=== PATIENT | female | born 1955 | race Caucasian/White ===

== ENCOUNTER 2019-06-09 09:32 | Outpatient (RCR) | payer MEDICAID, SELFPAY | END 2019-06-21 00:01 | LOC: WOUND 09:32 | PROVIDERS: Family Provider Nurse Practitioner Family; Visit Provider Nurse Practitioner Family | DX: I96 Gangrene, not elsewhere classified (principal); L97.819 Non-pressure chronic ulcer of other part of right lower leg with unspecified severity; M79.604 Pain in right leg; M79.605 Pain in left leg | CPT/HCPCS: 93923; 93970; G0463 ×3 ==

== ENCOUNTER 2019-07-13 09:34 | Outpatient (RCR) | payer MEDICAID, SELFPAY | END 2019-07-22 23:59 | disposition home or self-care (01) | LOC: WOUND 09:34 | PROVIDERS: Family Provider Nurse Practitioner Family; PCP Nurse Practitioner Family; Visit Provider Nurse Practitioner Family | DX: I87.2 Venous insufficiency (chronic) (peripheral) (principal); L97.812 Non-pressure chronic ulcer of other part of right lower leg with fat layer exposed | CPT/HCPCS: 11042; 29581; 99213; A6545 ==

== ENCOUNTER 2019-08-10 09:04 | Outpatient (RCR) | payer MEDICAID, SELFPAY | END 2019-08-20 23:59 | disposition home or self-care (01) | LOC: WOUND 09:04 | PROVIDERS: Family Provider Nurse Practitioner Family; PCP Nurse Practitioner Family; Visit Provider Nurse Practitioner Family | DX: I87.2 Venous insufficiency (chronic) (peripheral) (principal); L97.812 Non-pressure chronic ulcer of other part of right lower leg with fat layer exposed | CPT/HCPCS: 11042 ==

== ENCOUNTER 2019-08-25 07:55 | Outpatient (CLI) | payer MEDICAID, SELFPAY ==
--- NOTE | 2019-08-25 08:05 | US_ITS ---
WS: [id number] PELVIC ULTRASOUND REASON FOR VISIT: PELVIC PERINEAL PAIN TECHNIQUE: Grayscale and Doppler transabdominal and transvaginal pelvic ultrasound. FINDINGS: Was scanned transabdominal transvaginal. Uterus measures 6.37 cm x 4.1 cm x 4.2 cm, right ovary not visualized. And left ovary measures 1.9 cm x 1.2 cm x 0.8 cm. In the uterus there is evidence of a density measures 3 x 3.08 x 2.57 cm consistent with a uterine fi broid. US/US pelvic with transvaginal IMPRESSION: Transmural fibroid identified. The right ovary was not seen.
--- NOTE | 2019-08-25 08:09 | XR_ITS ---
WS: [id number] XR hand LT min 3V* [id number] REASON FOR EXAM: PAIN/REDNESS/NON HEALING ULCER/?OSTEOMYELITIS FINDINGS: A permeated pattern is seen in the fifth metacarpal and fifth phalanx suggesting osteomyeli tis. There is also deformity of the proximal fourth phalanx consistent with a fracture. The remaining hand appear to be essentially normal. XR/XR hand LT min 3V* [id number] IMPRESSION: Permeated pattern in the fifth metacarpal phalanx osteomyelitis to be excluded consider a bone scan. Fracture of the proximal fourth phalanx.
== END 2019-08-25 07:56 | disposition home or self-care (01) ==
LOC: US 08:03
PROVIDERS: Family Provider Nurse Practitioner Family; PCP Nurse Practitioner Family; Visit Provider Nurse Practitioner Family
DX: S62.615A Displaced fracture of proximal phalanx of left ring finger, initial encounter for closed fracture (principal); X58.XXXA Exposure to other specified factors, initial encounter; R10.2 Pelvic and perineal pain; M79.645 Pain in left finger(s); D25.9 Leiomyoma of uterus, unspecified
CPT/HCPCS: 11042; 73130; 76830; 76856

== ENCOUNTER 2019-09-14 15:12 | Outpatient (RCR) | payer MEDICAID, SELFPAY ==
--- NOTE | 2019-09-07 09:23 | NM_ITS ---
WS: [id number] IL bone 3 phase [id number] REASON FOR EXAM: OSTEOMYELITIS, PAIN TECHNICAL: Patient received 26.3 mCi technetium 99m HDP IV abnormal activity is noted in the right an gle of the mandible. Both ankle show increased activity the left worse than the right. Both kidneys show normal excretory changes. Mild abnormal uptake is seen in both knee joints. The wrist both show abnormal activity The interphalangeal joints and the Mediport carpal carpal articulation show increased activity sugges ting inflammatory joint disease. IL/IL bone 3 phase [id number] IMPRESSION: Abnormal activity is noted in both hands wrist angle of the right jaw both ankl es worse on the left most likely secondary to inflammatory joint disease. Past history of surgery on the right wrist and forearm 3 years ago
== END 2019-09-20 23:59 | disposition home or self-care (01) ==
LOC: WOUND 15:12
PROVIDERS: Family Provider Nurse Practitioner Family; PCP Nurse Practitioner Family; Visit Provider Nurse Practitioner Family
DX: E11.622 Type 2 diabetes mellitus with other skin ulcer (principal); L97.812 Non-pressure chronic ulcer of other part of right lower leg with fat layer exposed; M86.9 Osteomyelitis, unspecified; M89.8X9 Other specified disorders of bone, unspecified site
CPT/HCPCS: 11042; 15271; 78315; 87070; 87077; 87176; 87184; 87186; 87205; 97597; A9561; Q4196

== ENCOUNTER 2019-10-19 09:13 | Outpatient (RCR) | payer MEDICAID, SELFPAY | END 2019-10-20 23:59 | disposition home or self-care (01) | LOC: WOUND 09:13 | PROVIDERS: Family Provider Nurse Practitioner Family; PCP Nurse Practitioner Family; Visit Provider Thoracic Surgery (Cardiothoracic Vascular Surgery) | DX: I87.2 Venous insufficiency (chronic) (peripheral) (principal); L97.812 Non-pressure chronic ulcer of other part of right lower leg with fat layer exposed | CPT/HCPCS: 15271; Q4196 ==

== ENCOUNTER 2019-11-02 09:11 | Outpatient (CLI) | payer MEDICAID, SELFPAY | END 2019-11-02 09:12 | disposition home or self-care (01) | LOC: WOUND 09:11 | PROVIDERS: Family Provider Nurse Practitioner Family; PCP Nurse Practitioner Family; Visit Provider Thoracic Surgery (Cardiothoracic Vascular Surgery) | DX: E11.621 Type 2 diabetes mellitus with foot ulcer (principal); L97.812 Non-pressure chronic ulcer of other part of right lower leg with fat layer exposed | CPT/HCPCS: 11042 ==

== ENCOUNTER 2019-11-09 08:50 | Outpatient (CLI) | payer MEDICAID, SELFPAY | END 2019-11-09 08:51 | disposition home or self-care (01) | LOC: WOUND 08:50 | PROVIDERS: Family Provider Nurse Practitioner Family; PCP Nurse Practitioner Family; Visit Provider Thoracic Surgery (Cardiothoracic Vascular Surgery) | DX: E11.622 Type 2 diabetes mellitus with other skin ulcer (principal); L97.812 Non-pressure chronic ulcer of other part of right lower leg with fat layer exposed | CPT/HCPCS: 11042 ==

== ENCOUNTER 2019-11-16 10:12 | Outpatient (CLI) | payer MEDICAID, SELFPAY | END 2019-11-16 10:13 | disposition home or self-care (01) | LOC: WOUND 10:12 | PROVIDERS: Family Provider Nurse Practitioner Family; PCP Nurse Practitioner Family; Visit Provider Thoracic Surgery (Cardiothoracic Vascular Surgery) | DX: E11.622 Type 2 diabetes mellitus with other skin ulcer (principal); L97.812 Non-pressure chronic ulcer of other part of right lower leg with fat layer exposed | CPT/HCPCS: 11042 ==

== ENCOUNTER 2019-11-23 09:07 | Outpatient (CLI) | payer MEDICAID, SELFPAY | END 2019-11-23 09:08 | disposition home or self-care (01) | LOC: WOUND 09:07 | PROVIDERS: Family Provider Nurse Practitioner Family; PCP Nurse Practitioner Family; Visit Provider Thoracic Surgery (Cardiothoracic Vascular Surgery) | DX: I87.2 Venous insufficiency (chronic) (peripheral) (principal); L97.812 Non-pressure chronic ulcer of other part of right lower leg with fat layer exposed | CPT/HCPCS: 11042 ==

== ENCOUNTER 2019-11-23 10:40 | Outpatient (CLI) | payer MEDICAID, SELFPAY ==
--- NOTE | 2019-11-23 10:51 | XR_ITS ---
WS: [id number] XR finger LT min 2V [id number] REASON FOR EXAM: REDNESS/SWELLING FINDINGS: 3 views of the left fifth digit shows soft tissue swelling present. There is no evidence of fractures of the fifth digit. There was no destructive changes to suggest osteomyelitis. XR/XR finger LT min 2V [id number] IMPRESSION: Soft tissue swelling of the fifth phalanx through its entirety with no definite fractures or destructive changes.
== END 2019-11-23 10:41 | disposition home or self-care (01) ==
PROVIDERS: Family Provider Nurse Practitioner Family; PCP Nurse Practitioner Family; Visit Provider Thoracic Surgery (Cardiothoracic Vascular Surgery)
DX: M79.89 Other specified soft tissue disorders (principal); S61.257A Open bite of left little finger without damage to nail, initial encounter; X58.XXXA Exposure to other specified factors, initial encounter
CPT/HCPCS: 73140

== ENCOUNTER 2019-12-07 10:54 | Outpatient (CLI) | payer MEDICAID, SELFPAY | END 2019-12-07 10:55 | disposition home or self-care (01) | LOC: WOUND 10:56 | PROVIDERS: Family Provider Nurse Practitioner Family; PCP Nurse Practitioner Family; Visit Provider Thoracic Surgery (Cardiothoracic Vascular Surgery) | DX: Z09 Encounter for follow-up examination after completed treatment for conditions other than malignant neoplasm (principal) | CPT/HCPCS: 99212 ==

== ENCOUNTER 2019-12-12 06:00 | Outpatient (RCR) | payer MEDICAID, SELFPAY | END 2019-12-20 23:59 | disposition home or self-care (01) | LOC: WPT 06:00 | PROVIDERS: PCP Nurse Practitioner Family; Visit Provider Nurse Practitioner Family | DX: G89.29 Other chronic pain (principal); M54.5 Low back pain | CPT/HCPCS: 97110; 97161 ==

== ENCOUNTER 2019-12-21 06:00 | Outpatient (RCR) | payer MEDICAID, SELFPAY | END 2020-01-20 23:59 | disposition home or self-care (01) | LOC: WPT 06:00 | PROVIDERS: PCP Nurse Practitioner Family; Visit Provider Nurse Practitioner Family | DX: G89.29 Other chronic pain (principal); M54.5 Low back pain | CPT/HCPCS: 97110 ==

== ENCOUNTER 2020-01-21 06:00 | Outpatient (RCR) | payer MEDICAID, SELFPAY | END 2020-02-20 23:59 | disposition home or self-care (01) | LOC: WPT 06:00 | PROVIDERS: PCP Nurse Practitioner Family; Visit Provider Nurse Practitioner Family | DX: G89.29 Other chronic pain (principal); M54.5 Low back pain | CPT/HCPCS: 97110; 97530 ==

== ENCOUNTER → 2020-06-05 14:55 | Outpatient (BNVA) | payer MEDICAID, SELFPAY | PROVIDERS: PCP Nurse Practitioner Family; Visit Provider Nurse Practitioner Family | DX: Z20.828 Contact with and (suspected) exposure to other viral communicable diseases (principal) | CPT/HCPCS: 87635 ==

== ENCOUNTER → 2020-08-29 11:46 | Outpatient (BNVA) | payer MEDICAID, SELFPAY | PROVIDERS: PCP Nurse Practitioner Family; Visit Provider Nurse Practitioner Family | DX: R63.5 Abnormal weight gain (principal); J30.89 Other allergic rhinitis; E10.9 Type 1 diabetes mellitus without complications; R53.83 Other fatigue; Z13.6 Encounter for screening for cardiovascular disorders; E55.9 Vitamin D deficiency, unspecified; Z76.89 Persons encountering health services in other specified circumstances; F41.9 Anxiety disorder, unspecified | CPT/HCPCS: 80053; 80061; 81003; 82306; 83036; 84439; 84443; 84481; 85025 ==

== ENCOUNTER → 2020-11-06 14:04 | Outpatient (BNVA) | payer MEDICAID, SELFPAY | PROVIDERS: PCP Nurse Practitioner Family; Visit Provider Internal Medicine Pulmonary Disease | DX: J45.909 Unspecified asthma, uncomplicated (principal); J30.89 Other allergic rhinitis | CPT/HCPCS: 82785; 85025; 86003 ==

== ENCOUNTER → 2021-07-16 12:27 | Outpatient (BNVA) | payer MEDICARE, MEDICAID, SELFPAY | PROVIDERS: PCP Nurse Practitioner Family; Visit Provider Nurse Practitioner Family | DX: R53.83 Other fatigue (principal) | CPT/HCPCS: 84439; 84481; 85025 ==

== ENCOUNTER → 2021-07-19 10:00 | Outpatient (BNVA) | payer MEDICARE, MEDICAID, SELFPAY | PROVIDERS: PCP Nurse Practitioner Family; Visit Provider Nurse Practitioner Family | DX: R53.82 Chronic fatigue, unspecified (principal); E55.9 Vitamin D deficiency, unspecified; E10.9 Type 1 diabetes mellitus without complications; E78.2 Mixed hyperlipidemia; K21.9 Gastro-esophageal reflux disease without esophagitis; M79.7 Fibromyalgia | CPT/HCPCS: 80053; 80061; 81003; 82306; 82728; 83036; 83550; 84443 ==

== ENCOUNTER → 2021-12-18 09:36 | Outpatient (BNVA) | payer MEDICARE, MEDICAID, SELFPAY | PROVIDERS: PCP Nurse Practitioner Family; Visit Provider Nurse Practitioner Family | DX: E10.9 Type 1 diabetes mellitus without complications (principal) | CPT/HCPCS: 80053; 81000; 83036; 85025 ==

== ENCOUNTER → 2022-01-30 14:22 | Outpatient (BNVA) | payer MEDICARE, MEDICAID, SELFPAY | PROVIDERS: PCP Nurse Practitioner Family; Visit Provider Internal Medicine | DX: E10.9 Type 1 diabetes mellitus without complications (principal); E78.2 Mixed hyperlipidemia; E55.9 Vitamin D deficiency, unspecified; Z79.4 Long term (current) use of insulin; Z79.84 Long term (current) use of oral hypoglycemic drugs | CPT/HCPCS: 99204 ==

== ENCOUNTER 2022-05-05 07:45 | Outpatient (CLI) | payer MEDICARE, MEDICAID, SELFPAY ==
--- NOTE | 2022-05-05 | US_ITS ---
DIAGNOSTIC BILATERAL DIGITAL BREAST TOMOSYNTHESIS MAMMOGRAPHY WITH CAD Bilateral breast ultrasound, limited HISTORY: Bilateral breast masses. COMPARISON: None available. TECHNIQUE: Bilateral craniocaudad, mediolateral oblique, and mediolateral views are submitted with tomosynthesis and SM. Spot compression bilateral CC and MLO imaging. Computer aided detection utilized. Breast composition: There are scattered areas of fibroglandular density. Markers are placed over each breast at the site of palpable abnormalities. No masses are identified and no distortion. No suspicious calcifications. Bilateral breast ultrasound, limited. RIGHT breast: Ultrasound directed at 1 and 5:00 in the palpable regions. No abnormality. LEFT breast: Ultrasound directed at 3 and 11:00 in the palpable regions. No abnormality. IMPRESSION: BI-RADS: 2-Benign FOLLOW UP: 1 Year Follow-up BERNABE
--- NOTE | 2022-05-05 07:56 | MM_ITS ---
WS: [id number] DIAGNOSTIC BILATERAL DIGITAL BREAST TOMOSYNTHESIS MAMMOGRAPHY WITH CAD Bilateral breast ultrasound, limited HISTORY: Bilateral breast masses. COMPARISON: None available. TECHNIQUE: Bilateral craniocaudad, mediolateral oblique, and mediolateral views are submitted with to mosynthesis and SM. Spot compression bilateral CC and MLO imaging. Computer aided detection utilized. Breast composition: There are scattered areas of fibroglandular density. Markers are placed over each breast at the site of palpable abnormalities. No masses are identified and no distortion. No suspici ous calcifications. Bilateral breast ultrasound, limited. RIGHT breast: Ultrasound directed at 1 and 5:00 in the palpable regions. No abnormality. LEFT breast: Ultrasound directed at 3 and 11:00 in the palpable regions. No abnormality. MM/[place] [id number] IMPRESSION: BI-RADS: 2-Benign FOLLOW UP: 1 Year Follow-up
== END 2022-05-05 07:46 | disposition home or self-care (01) ==
LOC: RAD 07:47
PROVIDERS: PCP Nurse Practitioner Family; Visit Provider Family Medicine
DX: N63.12 Unspecified lump in the right breast, upper inner quadrant (principal); N63.25 Unspecified lump in the left breast, overlapping quadrants
CPT/HCPCS: 76642; 77062; G0279

== ENCOUNTER → 2022-05-26 09:41 | Outpatient (BNVA) | payer MEDICARE, MEDICAID, SELFPAY | PROVIDERS: PCP Nurse Practitioner Family; Visit Provider Nurse Practitioner | DX: U07.1 COVID-19 (principal); R69 Illness, unspecified | CPT/HCPCS: 87400; 87426 ==

== ENCOUNTER → 2022-07-02 13:42 | Outpatient (BNVA) | payer MEDICARE, MEDICAID, SELFPAY | PROVIDERS: PCP Nurse Practitioner Family; Visit Provider Surgery | DX: N63.0 Unspecified lump in unspecified breast (principal) | CPT/HCPCS: 99203 ==

== ENCOUNTER → 2022-08-06 08:57 | Outpatient (BNVA) | payer MEDICARE, MEDICAID, SELFPAY | PROVIDERS: PCP Nurse Practitioner Family; Visit Provider Nurse Practitioner | DX: R39.198 Other difficulties with micturition (principal) | CPT/HCPCS: 81000 ==

== ENCOUNTER → 2022-08-07 14:51 | Outpatient (BNVA) | payer MEDICARE, MEDICAID, SELFPAY | PROVIDERS: PCP Nurse Practitioner Family; Visit Provider Family Medicine | DX: R33.9 Retention of urine, unspecified (principal) | CPT/HCPCS: 80053 ==

== ENCOUNTER → 2022-09-10 08:00 | Outpatient (BNVA) | payer MEDICARE, MEDICAID, SELFPAY | PROVIDERS: PCP Nurse Practitioner Family; Visit Provider Internal Medicine | DX: E10.9 Type 1 diabetes mellitus without complications (principal); E78.2 Mixed hyperlipidemia; Z79.4 Long term (current) use of insulin | CPT/HCPCS: 99214 ==

== ENCOUNTER → 2022-11-20 16:09 | Outpatient (BNVA) | payer MEDICARE, MEDICAID, SELFPAY | PROVIDERS: PCP Nurse Practitioner Family; Visit Provider Family Medicine | DX: L91.8 Other hypertrophic disorders of the skin (principal) | CPT/HCPCS: 88304; 88342 ==

== ENCOUNTER → 2022-12-16 11:21 | Outpatient (BNVA) | payer MEDICARE, MEDICAID, SELFPAY | PROVIDERS: PCP Nurse Practitioner Family; Visit Provider Internal Medicine | DX: E10.9 Type 1 diabetes mellitus without complications (principal); E78.2 Mixed hyperlipidemia | CPT/HCPCS: 80053; 80061; 82043; 83036 ==

== ENCOUNTER → 2022-12-18 10:15 | Outpatient (BNVA) | payer MEDICARE, MEDICAID, SELFPAY | PROVIDERS: PCP Nurse Practitioner Family; Referring Provider Family Medicine; Visit Provider Dermatology | DX: Z87.891 Personal history of nicotine dependence (principal); Z85.828 Personal history of other malignant neoplasm of skin; D18.01 Hemangioma of skin and subcutaneous tissue; L90.5 Scar conditions and fibrosis of skin; L82.1 Other seborrheic keratosis; L57.0 Actinic keratosis; L81.4 Other melanin hyperpigmentation | CPT/HCPCS: 11102; 17000; 17003; 99203; 99213; 99214 ==

== ENCOUNTER → 2023-06-23 08:44 | Outpatient (BNVA) | payer MEDICARE, MEDICAID, SELFPAY | PROVIDERS: PCP Nurse Practitioner Family; Visit Provider Nurse Practitioner Family | DX: E55.9 Vitamin D deficiency, unspecified (principal); E78.2 Mixed hyperlipidemia; E10.9 Type 1 diabetes mellitus without complications; R53.82 Chronic fatigue, unspecified; D64.9 Anemia, unspecified; E78.5 Hyperlipidemia, unspecified; I10 Essential (primary) hypertension; Z87.448 Personal history of other diseases of urinary system; R25.2 Cramp and spasm | CPT/HCPCS: 80053; 80061; 81003; 82306; 82570; 82728; 83036; 83735; 84100; 84156; 84443; 85025 ==

== ENCOUNTER → 2023-09-08 08:40 | Outpatient (BNVA) | payer MEDICARE, MEDICAID, SELFPAY | PROVIDERS: PCP Nurse Practitioner Family; Visit Provider Internal Medicine | DX: M79.7 Fibromyalgia (principal); E10.9 Type 1 diabetes mellitus without complications; E78.2 Mixed hyperlipidemia; E55.9 Vitamin D deficiency, unspecified | CPT/HCPCS: 99214 ==

== ENCOUNTER → 2024-02-15 08:59 | Outpatient (BNVA) | payer MEDICARE, MEDICAID, SELFPAY | PROVIDERS: PCP Nurse Practitioner Family; Visit Provider Nurse Practitioner Family | DX: E10.9 Type 1 diabetes mellitus without complications (principal); E78.2 Mixed hyperlipidemia; E55.9 Vitamin D deficiency, unspecified; M79.7 Fibromyalgia | CPT/HCPCS: 80053; 80061; 82043; 82306; 83036; 85025 ==

== ENCOUNTER 2024-06-21 06:00 | Outpatient (RCR) | payer MEDICARE, MEDICAID, SELFPAY | END 2024-06-21 23:59 | disposition home or self-care (01) | LOC: WPT 06:00 | PROVIDERS: Visit Provider Nurse Practitioner Family | DX: M51.369 Other intervertebral disc degeneration, lumbar region without mention of lumbar back pain or lower extremity pain (principal) | CPT/HCPCS: 97162 ==

== ENCOUNTER 2024-06-22 06:00 | Outpatient (RCR) | payer MEDICARE, MEDICAID, SELFPAY | END 2024-07-22 23:59 | disposition home or self-care (01) | LOC: WPT 06:00 | PROVIDERS: Visit Provider Nurse Practitioner Family | DX: M51.369 Other intervertebral disc degeneration, lumbar region without mention of lumbar back pain or lower extremity pain (principal) | CPT/HCPCS: 97110; 97112; 97530 ==

== ENCOUNTER → 2024-07-29 11:16 | Outpatient (BNVA) | payer MEDICARE, MEDICAID, SELFPAY | PROVIDERS: PCP Nurse Practitioner Family; Visit Provider Nurse Practitioner Family | DX: E10.9 Type 1 diabetes mellitus without complications (principal) | CPT/HCPCS: 83036 ==

== ENCOUNTER 2024-08-10 13:05 | Outpatient (RCR) | payer MEDICARE, MEDICAID, SELFPAY | END 2024-08-19 23:59 | disposition home or self-care (01) | LOC: WPT 13:05 | PROVIDERS: PCP Nurse Practitioner Family; Visit Provider Nurse Practitioner Family | DX: M51.369 Other intervertebral disc degeneration, lumbar region without mention of lumbar back pain or lower extremity pain (principal) | CPT/HCPCS: 97110; 97530 ==

== ENCOUNTER → 2024-09-15 09:06 | Outpatient (BNVA) | payer MEDICARE, MEDICAID, SELFPAY | PROVIDERS: PCP Nurse Practitioner Family; Visit Provider Nurse Practitioner Family | DX: E10.9 Type 1 diabetes mellitus without complications (principal); D64.9 Anemia, unspecified; M79.7 Fibromyalgia | CPT/HCPCS: 80053; 80061; 81003; 82306; 82607; 84443; 85025; 86200 ==

== ENCOUNTER → 2024-11-04 09:16 | Outpatient (BNVA) | payer MEDICARE, MEDICAID, SELFPAY | PROVIDERS: PCP Nurse Practitioner Family; Visit Provider Internal Medicine | DX: E10.9 Type 1 diabetes mellitus without complications (principal); E55.9 Vitamin D deficiency, unspecified; M79.7 Fibromyalgia; E78.2 Mixed hyperlipidemia | CPT/HCPCS: 99214 ==

== ENCOUNTER 2024-11-11 10:43 | Outpatient (CLI) | payer MEDICARE, MEDICAID, SELFPAY ==
--- NOTE | 2024-11-11 10:45 | MR_ITS ---
WS: [id number] MRI LUMBAR SPINE NONCONTRAST HISTORY: M54.50 - Low back pain, unspecified COMPARISON: 07/12/2012 TECHNIQUE: Sagittal and axial multisequence imaging is submitted. Moderate increase in thoracic kyphosis. Seen on the localizer image through a small portion of the brain is a cystic area which appears more rounded and larger than expected for ventricle. Normal lumbar alignment with no compression fractures or marrow edema. 2 mm anterolisthesis of L4. No fractures or marrow edema. Conus terminates normally at L1-2 disc level. L1-L2: Normal. L2-L3: Normal. L3-L4: Diffuse annular disc bulging with mild ligamentum flavum and facet arthritis. No stenosis. L4-L5: Mild annular disc bulging with moderate ligamentum flavum and facet arthritis encroaching upon the central canal. Mild subarticular recess encroachment. Very mild central, subarticular recess and foraminal stenosis which has progressed since 2013. L5-S1: Normal. RIGHT perineural cysts unchanged. MR/MR lumbar spine wo con* [id number] IMPRESSION: 1. Mild progression of stenosis and central encroachment at L4-5 since the [place] or study. Mild central, subarticular recess and foraminal stenosis. 2. 2 mm anterolisthesis of L4 is unchanged. 3. Seen on the localizer image is a cystic mass noted in the brain which may b e the lateral ventricle but it does appear more rounded and larger than expecte d. Recommend MRI brain with and without contrast.
== END 2024-11-11 10:44 | disposition home or self-care (01) ==
PROVIDERS: PCP Nurse Practitioner Family; Visit Provider Nurse Practitioner Family
DX: M51.362 Other intervertebral disc degeneration, lumbar region with discogenic back pain and lower extremity pain (principal); G89.29 Other chronic pain; M48.061 Spinal stenosis, lumbar region without neurogenic claudication; M43.16 Spondylolisthesis, lumbar region; R93.0 Abnormal findings on diagnostic imaging of skull and head, not elsewhere classified; M40.294 Other kyphosis, thoracic region; M24.28 Disorder of ligament, vertebrae; M47.896 Other spondylosis, lumbar region; G96.191 Perineural cyst
CPT/HCPCS: 72148

== ENCOUNTER → 2024-11-16 16:30 | Outpatient (BNVA) | payer MEDICARE, MEDICAID, SELFPAY | PROVIDERS: PCP Nurse Practitioner Family; Visit Provider Nurse Practitioner Family | DX: M79.7 Fibromyalgia (principal); E55.9 Vitamin D deficiency, unspecified; D64.9 Anemia, unspecified | CPT/HCPCS: 82306; 82607 ==

== ENCOUNTER 2024-11-25 10:32 | Outpatient (CLI) | payer MEDICARE, MEDICAID, SELFPAY ==
--- NOTE | 2024-11-25 11:00 | MR_ITS ---
WS: [id number] MRI BRAIN WITH AND WITHOUT CONTRAST HISTORY: G93.0 - Cerebral cysts, follow-up localizer image of the lumbar spine of 11/11/2024. COMPARISON: 08/12/2011 TECHNIQUE: Multiplanar imaging performed through the brain with MultiHance 20 ml's IV. No acute infarcts are seen. Hurd-white matter differentiation is well preserved. Mild cerebral and cerebellar atrophy with mild to moderate small vessel disease. Previously described cystic mass suspected on the localizer image of the lumbar spine is actually a normal-appearing anterior horn of the lateral ventricle. Lateral ventricles are minimally prominent due to the volume loss. There is no additional cystic or solid mass. No areas of abnormal enhancement. Mild hippocampal atrophy. No susceptibility artifacts or prior lacunar infarcts. Clivus and pituitary gland are normal. Visualized posterior fossa and brainstem are also normal. There are few areas of artifact extending horizontally through the brain on the postcontrast imaging. After review multiple sequences no persistent abnormality or enhancing mass. Dural venous sinuses are normal. Paranasal sinuses: Well aerated with no significant disease. Mastoid air cells: Bilateral mastoid air cell effusions, LEFT greater than RIGHT. Calvarium and scalp: Normal. MR/MR head wo/w con [id number] IMPRESSION: 1. No cystic mass identified. Prominent cystic area seen on the localizer imag e of the lumbar spine corresponds to a mildly prominent but normal-appearing la teral ventricle. 2. Mild cerebral cerebral atrophy and hippocampal atrophy. 3. Mild to moderate chronic small vessel disease. 4. Bilateral mastoid air cell effusions.
[2024-11-25] MEDS: gadobenate dimeglumine 20 mL vial IV (11:25)
== END 2024-11-25 10:33 | disposition home or self-care (01) ==
LOC: RAD 10:33
PROVIDERS: PCP Nurse Practitioner Family; Visit Provider Nurse Practitioner Family
DX: G93.0 Cerebral cysts (principal)
CPT/HCPCS: 70553

== ENCOUNTER → 2025-01-04 12:02 | Outpatient (BNVA) | payer MEDICARE, MEDICAID, SELFPAY | PROVIDERS: PCP Nurse Practitioner Family; Visit Provider Internal Medicine | DX: E10.9 Type 1 diabetes mellitus without complications (principal); E78.2 Mixed hyperlipidemia; E55.9 Vitamin D deficiency, unspecified | CPT/HCPCS: 99214 ==

== ENCOUNTER → 2025-03-15 13:08 | Outpatient (BNVA) | payer MEDICARE, MEDICAID, SELFPAY | PROVIDERS: PCP Nurse Practitioner Family; Visit Provider Specialist | DX: S52.122A Displaced fracture of head of left radius, initial encounter for closed fracture (principal); W19.XXXA Unspecified fall, initial encounter | CPT/HCPCS: 73080 ==

== ENCOUNTER 2025-03-15 14:33 | Outpatient (CLI) | payer MEDICARE, MEDICAID, SELFPAY | END 2025-03-15 14:34 | disposition home or self-care (01) | LOC: SPT 14:33 | PROVIDERS: PCP Nurse Practitioner Family; Visit Provider Specialist | DX: Z46.89 Encounter for fitting and adjustment of other specified devices (principal); S52.125D Nondisplaced fracture of head of left radius, subsequent encounter for closed fracture with routine healing; X58.XXXD Exposure to other specified factors, subsequent encounter | CPT/HCPCS: 99204; L3761 ==

== ENCOUNTER → 2025-04-03 10:08 | Outpatient (BNVA) | payer MEDICARE, MEDICAID, SELFPAY | PROVIDERS: PCP Nurse Practitioner Family; Visit Provider Specialist | DX: M17.12 Unilateral primary osteoarthritis, left knee (principal) | CPT/HCPCS: 73560; 73565; 99214 ==